=== PATIENT | male | born 1935 | race Caucasian/White ===

== ENCOUNTER → 2018-06-29 | Outpatient (CLI) | payer OTHER ==
--- NOTE | 2018-06-30 16:01 | RAD ---
DATE: 06/29/2018 EXAM: DIGITAL DIAGNOSTIC BILATERAL, BREAST BILATERAL HISTORY: Lumpy painful breasts COMPARISON: Baseline study This study was interpreted with the benefit of Computerized Aided Detection (CAD). Breast Density: DENSE The breast parenchyma is dense, which could reduce the sensitivity of mammography. Breast parenchyma level density D. FINDINGS: 2-D and 3-D tomosynthesis imaging was performed in CC and MLO projections. The breasts are extremely dense in a heterogeneous pattern. This is quite unusual for a male. No focal breast mass or architectural distortion is seen. No suspicious microcalcifications are evident. Small benign-appearing lymph node type densities are projected over the left axillary region. IMPRESSION: Heterogeneous fibroglandular densities bilaterally compatible with extensive gynecomastia. No discrete breast mass is seen. The patient has been scheduled for bilateral breast ultrasound for further evaluation which will be reported separately. BI-RADS CATEGORY: 0 INCOMPLETE: NEEDS ADDITIONAL IMAGING EVALUATION AND/OR PRIOR MAMMOGRAMS FOR COMPARISON. RECOMMENDED FOLLOW-UP: ADD ADDITIONAL IMAGING PQRS compliance statement: Patient information was entered into a reminder system with a target due date for the next mammogram. Mammography is a sensitive method for finding small breast cancers, but it does not detect them all and is not a substitute for careful clinical examination. A negative mammogram does not negate a clinically suspicious finding and should not result in delay in biopsying a clinically suspicious abnormality. "Our facility is accredited by the [employer] Mammography Program."
== END | disposition home or self-care (01) ==
LOC: MAMMO 13:35
PROVIDERS: ATTEND Family Medicine
DX: R92.8 Other abnormal and inconclusive findings on diagnostic imaging of breast (principal)
CPT/HCPCS: 77066

== ENCOUNTER → 2018-07-03 | Outpatient (CLI) | payer OTHER ==
--- NOTE | 2018-07-03 13:37 | RAD ---
Bilateral breast ultrasound, 07/03/2018: History: Abnormal mammograms, lumpy painful breasts Both breasts were carefully scanned. There is heterogeneous hypoechoic tissue in the retroareolar regions bilaterally in a symmetric pattern. The findings are compatible with gynecomastia. A tiny 3 mm benign-appearing cyst is noted in the left retroareolar region. No suspicious breast mass or fluid collection is seen. IMPRESSION: Extensive bilateral gynecomastia.
== END | disposition home or self-care (01) ==
LOC: US 12:40
PROVIDERS: ATTEND Family Medicine
DX: N62 Hypertrophy of breast (principal)
CPT/HCPCS: 76641

== ENCOUNTER → 2018-12-16 | Outpatient (CLI) | payer MEDICARE, OTHER ==
--- NOTE | 2018-12-16 20:41 | RAD ---
Ultrasound venous Doppler INDICATION:Bilateral lower extremity swelling TECHNIQUE: Grayscale, color Doppler and spectral waveform ultrasound images of the bilateral lower extremities deep veins obtained. COMPARISON: None FINDINGS: The interrogated deep veins are compressible and demonstrate evidence of blood flow with normal respiratory variation and response to augmentation. There is an oval-shaped hypoechoic lesion measuring 3.5 x 6.6 x 1.5 cm without internal vascularity along the medial aspect of the distal right thigh medial pain. IMPRESSION: 1. No sonographic evidence of acute DVT of the bilateral lower extremity deep veins. 2. The soft tissue lesion in the distal right thigh in the area of pain likely hematoma. Clinically correlate for recent trauma. Electronically signed by: Neo Lucas DO (12/16/2018 8:38 PM) [facility]
== END | disposition home or self-care (01) ==
LOC: US 19:41
PROVIDERS: ATTEND Internal Medicine
DX: L98.9 Disorder of the skin and subcutaneous tissue, unspecified (principal); M79.662 Pain in left lower leg; M79.661 Pain in right lower leg
CPT/HCPCS: 93970

== ENCOUNTER → 2019-08-17 | Day surgery (SDC) | payer OTHER ==
[~2019-08-17] MED LIST: ACET325T9 PO; ALBUTEROL SULFATE 2.5 MG/3 ML NEBU. NEB PRN; ALLO300T PO; ASPI81TA50 PO; ATOR20TA58 PO; ATROPINE 0.5 MG/5 ML DISP.SYRIN. IV PRN; BALANCED SALT IRRIG OPHTH SOLN 15 ML BOTTLE. IRR ONE; CATARACT OPHTH GEL 0.5 ML SYRINGE. OS ONE; CHONDROIT-SOD-HYALURONATE KIT. OS ONE; CYAN100031 PO; DONE10TA7 PO; EPINEPHrine AMPULE 0.5 MG in BALANCED SALT IRRIG SOLN PLUS 500 ML IO ONE; EPLE25TA4 PO; ERYTHROMYCIN 0.5% OPHTH OINTMENT 1GM TUBE. OS ONE; FINA5TAB4 PO; GABA-586 PO; HYALURONIDASE 75UNITS in LIDOCAINE 2% PF OPHTH 10 ML SYRINGE. OS ONE; IV RINGERS SOLUTION,LACTATED 1,000 ML IV SCH; KETOROLAC TROMETHAMINE 0.5% OPHTH SOLUTION BOTTLE. ONE; KETOROLAC TROMETHAMINE 0.5% OPHTH SOLUTION BOTTLE. OS SCH; LEVO50TA5 PO; LIDO/EPI IN BSS OPHTH 8 ML SYRINGE OD SCH; MOXIFLOXACIN 0.5% OPHTH SOLUTION 3ML BOTTLE. OS SCH; MULT-245 PO; OXYC5TAB4 PO; POLY17PO5 PO; POVIDONE-IODINE 5% OPHTH SOLUTION 30ML BOTTLE. OS ONE; PROPOFOL 20 ML IV ONE; SERT100T PO; TAMS0.4C97 PO; TETRACAINE 0.5% OPHTH SOLUTION 4ML BOTTLE. OS ONE; TETRACAINE 0.5% OPHTH SOLUTION 4ML BOTTLE. OU ONE; diphenhydrAMINE 50 MG/ML VIAL IV PRN; prednisoLONE ACETATE 1% OPHTH SUSPENSION 5ML BOTTLE. ONE; prednisoLONE ACETATE 1% OPHTH SUSPENSION 5ML BOTTLE. OS SCH
[2019-08-17] MEDS: MOXIFLOXACIN 0.5% OPHTH SOLUTION 3ML BOTTLE. OS SCH ×3 (10:30→10:42)
--- NOTE | 2019-08-17 11:39 | PDOC4 ---
CATARACT Operative Report DATE DATE: 08/17/19 TIME: 11:38 Operation Performed OPERATIVE REPORT Name: Xavier Love Operation Date: Preoperative Diagnosis: 1. Senile cataract, LEFTeye. 2. Inadequate pupillary dilation. Postoperative Diagnosis: 1. Senile cataract, LEFT:eye. 2. Inadequate pupillary dilation. Operation: 1. Phacoemulsification with posterior chamber intraocular lens implant. 2. Iris stretching via placement of Malyugan ring. Surgeon: Mary Torres D.O. Anesthesia: Local with monitored anesthesia care Description of Operation: Under cardiac monitoring and mild IV sedation, the patient received peribulbar anesthesia in the holding area. Pressure was applied to the eye with a [place] balloon for approximately 10 minutes. The patient was taken to the operating room and placed in a supine position and the periorbital region was prepped and draped in the usual sterile fashion. A lid speculum was placed between the eyelids. A temporal clear corneal incision was made with a keratome. 1 cc of epi-Shugarcaine was injected into the anterior chamber. Viscoelastic was injected into the eye. A side port incision was made three clock hours to the left of the clear corneal incision. Due to continued poor dilation not responsive to epi-Shugarcaine, a Malyugan ring was placed. A cystotome and capsule forceps were used to make a continuous tear capsulorhexus. Hydrodissection was performed with balanced salt solution. The phacoemulsification needle was placed into the eye and the cataract was removed. The remaining cortical material was removed with the irrigation and aspiration apparatus. The posterior capsule was noted to be clean and intact. Viscoelastic was injected into the eye inflating the capsular bag. A foldable intraocular lens was injected into the eye, unfolding as desired, and positioned in the capsular bag. The Malyugan ring was then removed from the eye. The viscoelastic was aspirated from the eye. The wound edges were hydrated with balanced salt solution. There were no wound leaks. Viscoelastic was injected over the side port and clear corneal incisions. One drop of Vigamox and one drop of prednisolone acetate were instilled into the eye. The lid speculum was removed and a pressure dressing with a Lopez shield was placed over the eye. The patient was taken to the recovery room in good condition. SHAWNA TORRES DO Aug 17, 2019 11:39
[2019-08-17 11:56] VITALS: BP 188/70
== END | disposition home or self-care (01) ==
LOC: SURG 08:54
PROVIDERS: ATTEND Ophthalmology
DX: H25.89 Other age-related cataract (principal); I10 Essential (primary) hypertension; I48.91 Unspecified atrial fibrillation; E03.9 Hypothyroidism, unspecified; K58.9 Irritable bowel syndrome, unspecified; F41.9 Anxiety disorder, unspecified; F32.9 Major depressive disorder, single episode, unspecified; I25.2 Old myocardial infarction; K21.9 Gastro-esophageal reflux disease without esophagitis; Z87.39 Personal history of other diseases of the musculoskeletal system and connective tissue; Z98.890 Other specified postprocedural states; Z95.1 Presence of aortocoronary bypass graft; Z87.891 Personal history of nicotine dependence; Z88.8 Allergy status to other drugs, medicaments and biological substances
CPT/HCPCS: 66982; J0171; J2704; V2632